=== PATIENT | female | born 1995 | race Two or more races ===

== ENCOUNTER 2017-08-29 15:46 | Emergency (ER) | payer BC ==
--- NOTE | 2017-08-29 16:15 | CPEKG ---
Heart Rate: 91 RR Interval: 659 P-R Interval: 144 QRSD Interval: 78 QT Interval: 328 QTC Interval: 404 P [place]: 66 QRS [place]: 71 T Wave [place]: 38 EKG Severity - ABNORMAL ECG - EKG Impression: SINUS RHYTHM EKG Impression: LEFT ATRIAL ABNORMALITY Electronically Signed By: Irish Lezama 29-Aug-2017 23:30:59
[2017-08-29] MEDS ORDERED: LORazepam 1 MG TAB PO ONE (16:56)
--- NOTE | 2017-08-29 17:00 | EDPHY ---
H & P Stated Complaint: SOB/CHEST TIGHTNESS/JUST STOPPED PREDNISONE AND VALTREX FOR SHINGLES Source: Patient Exam Limitations: No limitations - Personal History LMP (Females 10-55): IUD In Place - Medical/Surgical History Hx Asthma: Yes Hx Chronic Respiratory Disease: No Hx Diabetes: No Hx Cardiac Disease: No Hx Renal Disease: No Hx Cirrhosis: No Hx Alcoholism: No Hx HIV/AIDS: No Hx Splenectomy or Spleen Trauma: No Other PMH: KELLE JAY SYNDROME SHINGLES - Social History Smoking Status: Never smoked Time Seen by Provider: 08/29/17 16:57 HPI/ROS: HPI: This is a 22-year-old female who presents with Chief Complaint: SOB/CHEST TIGHTNESS/JUST STOPPED PREDNISONE AND VALTREX FOR SHINGLES Location: Chest Quality: Tightness Duration: 24 hr Signs and Symptoms: no shortness of breath at rest, no shortness of breath on exertion, no cough, no chest pain, no palpitations, no lower extremity edema, no wheezing, no orthopnea, no paroxysmal nocturnal dyspnea, no fever, no injury/ trauma, no hemoptysis, no carpal pedal spasms Timing: Acute Severity: Mild Context: Patient was diagnosed with shingles approximately 10 days ago and completed 10 days of prednisone and Valtrex last dose yesterday. Patient reports that she did not take her prednisone yesterday as she has been having extreme insomnia and anxiety which he believes is from the prednisone. She reports that yesterday she started to feel generalized anterior chest tightness. Denies any history of wheezing/fever/cough/shortness of breath/ lower extremity edema. Patient reports that her rash is healing nicely. No visual changes. Patient reports that she has no primary care provider and is requesting a referral. Patient has vagus complain after much questioning discussion is her inability to sleep the last several days. She denies any suicidal ideation, homicidal ideation, hallucinations. Has an IUD in place. Modifying Factors: See above Comment: ROS: see HPI Constitutional: No fever, no chills, no weight loss Eyes: No blurred vision Respiratory: No shortness of breath, no cough Cardiovascular: No chest pain, no palpitations, no lower extremity edema Gastrointestinal: No nausea, no vomiting, no diarrhea Genitourinary: No dysuria Extremities: No myalgias Neurologic: No weakness, no numbness Skin: No rashes Hematologic: No bruising, no bleeding MEDICAL/SURGICAL/SOCIAL HISTORY: Medical history: [place] syndrome. Surgical history: Denies Social history: Moved to [facility] approximately 1 year ago. CONSTITUTIONAL: Extremely polite well-appearing young adult female, wearing glasses, awake and alert, no obvious distress HEENT: Atraumatic and normocephalic, PERRL, EOMI. Nares patent; no rhinorrhea; no nasal mucosal edema. Tympanic membranes clear. Oropharynx clear, no exudate and moist pink mucosa. Airway patent. No lymphadenopathy. No meningismus. Cardiovascular: Normal S1/S2, regular rate, regular rhythm, without murmur rub or gallop. PULMONARY/CHEST: Symmetrical and nontender. Clear to auscultation bilaterally. Good air movement. No accessory muscle usage. ABDOMEN: Soft, nondistended, nontender, no rebound, no guarding, no peritoneal signs, no masses or organomegaly. No CVAT. EXTREMITIES: 2/2 pulses, strength 5/5, no deformities, no clubbing, no cyanosis or edema. NEUROLOGICAL: no focal neuro deficits. GCS 15. SKIN: Warm and dry, no erythema. no rash. Good capillary refill. (Daya Wilder) Constitutional: Initial Vital Signs Temperature (C) 36.8 C 08/29/17 15:51 Heart Rate 94 08/29/17 15:51 Respiratory Rate 18 08/29/17 15:51 Blood Pressure 112/81 H 08/29/17 15:51 O2 Sat (%) 97 08/29/17 15:51 O2 Delivery Mode Room Air Allergies/Adverse Reactions: No Known Allergies Allergy (Unverified 08/29/17 15:50) Home Medications: Medication Instructions Recorded Triazolam [Halcion 0.25MG (*)] 0.25 mg PO HS PRN #3 tab 08/29/17 Medical Decision Making - Diagnostics EKG Interpretation: 12 lead EKG: Indication: Chest pain Rhythm: Normal sinus rhythm, rate 91 beats per minute [employer]: Normal Intervals: Normal QRS: Normal ST segments: Normal INTERPRETATION: Normal EKG The 12 lead EKG was interpreted by myself and with attending. (Daya Wilder) 12 lead EKG is interpreted in Trace master View by emergency department physician. (Irish Lezama) ED Course/Re-evaluation: Vital signs reviewed upon arrival and stable. LOS risk is low for acute coronary syndrome EKG shows normal sinus rhythm Chest x-ray shows no signs of effusion, no opacity, no widened mediastinum, no pneumothorax Given Ativan 1 mg with complete relief of symptoms. Chest pain is atypical in nature. Advised supportive care. Referral to Internal Medicine provided. This patient was seen under the supervision of my secondary supervising physician. I evaluated care for this patient independently. Discussed this patient with Dr. Lezama who did not see the patient. (Daya Wilder) The patient was evaluated and managed by the physician benefits assistant. I have reviewed this chart and I agree with the findings and plan of care as documented , as indicated by my signature. I am the secondary supervising physician. ( Irish Lezama) Differential Diagnosis: Chest pain including but not limited to myocardial ischemia, pulmonary embolus, chest wall pain, pleural inflammation and pulmonary infectious causes. (Daya Wilder) - Data Points Medications Given: Discontinued Medications Lorazepam (Ativan) 1 mg PO EDNOW ONE Stop: 08/29/17 16:57 Last Admin: 08/29/17 17:26 Dose: 1 mg Departure - Departure Disposition: Home, Routine, Self-Care Clinical Impression: Atypical chest pain, Insomnia Condition: Good Instructions: Insomnia (ED), Noncardiac Chest Pain (ED) Additional Instructions: Establish care with primary care provider in the next 1-2 weeks. Referrals: Collin Alford DO [Doctor of Osteopathy] - As per Instructions Prescriptions: Triazolam [Halcion 0.25MG (*)] 0.25 mg PO HS PRN #3 tab PRN Reason: Sleep/Insomnia
[2017-08-29 17:28] VITALS: BP 107/74
== END 2017-08-29 17:28 | disposition home or self-care (01) ==
DX: R07.89 Other chest pain (principal); G47.00 Insomnia, unspecified; J45.909 Unspecified asthma, uncomplicated

== ENCOUNTER → 2018-04-29 | Outpatient (CLI) | payer BC | LOC: BMCIMAGING 10:38 | PROVIDERS: ATTEND Internal Medicine | DX: Z03.89 Encounter for observation for other suspected diseases and conditions ruled out (principal) ==

== ENCOUNTER 2018-08-22 13:57 | Emergency (ER) | payer BC ==
--- NOTE | 2018-08-22 14:12 | EDPHY ---
H & P Stated Complaint: Three positive tests, basal temp low today, neg preg test Source: Patient Exam Limitations: No limitations - Personal History Current Tetanus Diphtheria and Acellular Pertussis (TDAP): Yes - Medical/Surgical History Hx Asthma: Yes Hx Chronic Respiratory Disease: No Hx Diabetes: No Hx Cardiac Disease: No Hx Renal Disease: No Hx Cirrhosis: No Hx Alcoholism: No Hx HIV/AIDS: No Hx Splenectomy or Spleen Trauma: No Other PMH: KELLE JAY SYNDROME SHINGLES - Social History Smoking Status: Never smoked Time Seen by Provider: 08/22/18 14:09 HPI/ROS: HPI: This is a 23-year-old female who presents with Chief Complaint:Three positive tests, basal temp low today, neg preg test Location: Abdominal Quality: Crampy Duration: Several days Signs and Symptoms: no fever, no nausea, no vomiting, no hematemesis, no blood in stool, no abdominal bloating, no diarrhea, no back pain, no urinary symptoms , no vaginal bleeding/discharge, no indigestion, no chest pain, no shortness of breath Timing: Acute, intermittent episodes Severity: Mild Context: Patient is sexually active, engaged in unprotected sexual intercourse with Last menstrual period June and positive tests. Has taken 2 [employer] test that were positive. Went to urgent care today with negative test. Patient is a G2 with 1 , no living children. Patient complains of several days of abdominal cramping but no vaginal bleeding/ no vaginal discharge, no fever, no nausea, no vomiting, no urinary symptoms. Unsure blood type. Modifying Factors: Went to urgent care with negative test and sent to ER for further evaluation Comment: ROS: A comprehensive 10 system review of systems is otherwise negative aside from elements mentioned in the history of present illness. MEDICAL/SURGICAL/SOCIAL HISTORY: Medical history: KELLE JAY SYNDROME, SHINGLES Surgical history: Denies Social history: Never smoked. Drinks alcohol socially. Family history noncontributory. CONSTITUTIONAL: Extremely well-appearing young adult white female, awake and alert, no obvious distress HEENT: Atraumatic and normocephalic, PERRL, EOMI. Nares patent; no rhinorrhea; no nasal mucosal edema. Tympanic membranes clear. Oropharynx clear, no exudate and moist pink mucosa. Airway patent. No lymphadenopathy. No meningismus. Cardiovascular: Normal S1/S2, regular rate, regular rhythm, without murmur rub or gallop. PULMONARY/CHEST: Symmetrical and nontender. Clear to auscultation bilaterally. Good air movement. No accessory muscle usage. ABDOMEN: Soft, nondistended, nontender, no rebound, no guarding, no peritoneal signs, no masses or organomegaly. No CVAT. EXTREMITIES: 2/2 pulses, strength 5/5, no deformities, no clubbing, no cyanosis or edema. NEUROLOGICAL: no focal neuro deficits. GCS 15. SKIN: Warm and dry, no erythema. no rash. Good capillary refill. (Daya Wilder) Constitutional: Initial Vital Signs Temperature (C) 36.8 C 08/22/18 14:03 Heart Rate 87 08/22/18 14:03 Respiratory Rate 14 08/22/18 14:03 Blood Pressure 105/73 08/22/18 14:03 O2 Sat (%) 97 08/22/18 14:03 O2 Delivery Mode Room Air Allergies/Adverse Reactions: No Known Allergies Allergy (Unverified 08/29/17 15:50) Home Medications: Medication Instructions Recorded Triazolam [Halcion 0.25MG (*)] 0.25 mg PO HS PRN #3 tab 08/29/17 Medical Decision Making ED Course/Re-evaluation: Vital signs reviewed and stable upon arrival. IV access, laboratory studies, urinalysis, ultrasound ordered 1508: Laboratory studies reviewed. No signs of leukocytosis/anemia/platelet dysfunction/KITTY/electrolyte imbalance/. Urinalysis is unremarkable. 1540: Called by radiologist, Dr. Casarez, reports pelvic ultrasound is completely unremarkable and does not show ectopic , retained products of conception or ovarian torsion. Blood type O-positive and RhoGAM not indicated It appears that patient may have had a miscarriage quite a bit ago as quantitative levels 8.7 with negative qualitative serum HCG Advised patient to continue supportive care. This patient was seen under the supervision of my secondary supervising physician. I evaluated and cared for this patient independently. (Daya Wilder) The patient was evaluated and managed by the physician data assistant. I have reviewed this chart and I agree with the findings and plan of care as documented , as indicated by my signature. I am the secondary supervising physician. ( Irish Lezama) Differential Diagnosis: Abdominal pain in a female including but not limited to ovarian cyst, pelvic inflammatory disease, ovarian torsion, urinary tract infection, and appendicitis. (Daya Wilder) - Data Points Laboratory Results: Laboratory Results 08/22/18 14:27 08/22/18 14:27 Departure - Departure Disposition: Home, Routine, Self-Care Clinical Impression: Complete miscarriage Condition: Good Instructions: Miscarriage (ED) Additional Instructions: Return at once for any worsening symptoms or concerns. [facility] with [facility]. Referrals: Ed Navarro, PAC [Primary Care Provider] - As per Instructions [facility] [Clinic] - As per Instructions Stand Alone Forms: Work Excuse
[2018-08-22 14:40] LABS: PLATELET COUNT 269 10^3/uL (150-400)
[2018-08-22 16:06] VITALS: BP 122/82
== END 2018-08-22 16:06 | disposition home or self-care (01) ==
DX: O03.9 Complete or unspecified spontaneous abortion without complication (principal)